=== PATIENT | male | born 1955 | race Caucasian/White ===

== ENCOUNTER 2018-12-21 10:20 | Inpatient (IN) ==
[2018-12-21 11:48] LABS: Basophils # (auto) 0.06 K/uL (0-0.2); Eosinophils # (auto) 0.45 K/uL (0-0.5); Eosinophils % (auto) 7.8 %; Hematocrit (blood only) 38.2 % (42-52); Hemoglobin 12.8 g/dL (14.0-18.0); Immature Granulocytes # (auto) 0.01 K/uL (0.00-0.02); Immature Granulocytes % (auto) 0.2 %; Lymphocytes # (auto) 2.17 K/uL (1.2-3.4); Lymphocytes % (auto) 37.4 %; Mean Corpuscular Hgb Conc 33.5 g/dL (32-36); Mean Platelet Volume 10.2 fL (7.4-10.4); Monocytes # (auto) 0.51 K/uL (0.11-0.59); Monocytes % (auto) 8.8 %; Neutrophils % (auto) 44.8 %; Platelet Count 191 K/uL (130-400); RDW Coefficient of Variation 14.8 % (11.5-14.5); RDW Standard Deviation 46.7 fL (36.4-46.3); Red Blood Count 4.44 M/uL (4.7-6.1)
[2018-12-21 11:59] LABS: Albumin Globulin Ratio 0.7 (0.9-2); Albumin Level 3.6 gm/dl (3.4-5.0); Bilirubin,Total 0.4 mg/dl (0.2-1); Calcium 9.2 mg/dl (8.5-10.1); Creatinine Clr Calc Pharmacy 18.7 ml/min; Est GFR (African American) 13.8; Est GFR (Non-African American) 11.9; Globulin 5.3 gm/dl (2.5-4.0); Potassium 4.3 mmol/L (3.5-5.1); Total Protein 8.9 gm/dl (6.4-8.2)
[2018-12-21] MEDS ORDERED: SODIUM CHLORIDE 0.9% 1000ML 2,000 ML IV ONE (12:19)
[2018-12-21 12:46] LABS: Appearance Urine Clear (Clear); Bilirubin Urine Negative (Negative); Blood Urine Negative (Negative); Color Urine Yellow; Glucose Urine UA Negative (Negative); Ketones Urine Negative (Negative); Leukocyte Esterase Urine Negative (Negative); Nitrite Urine Negative (Negative); Protein Urine Negative (Negative); Specific Gravity Urine 1.014 (1.000-1.030); Urobilinogen Urine Negative (Negative)
--- NOTE | 2018-12-21 13:36 | History & Physical Report ---
Date of Service December 21, 2018 Assessment & Plan (1) ARUN (acute kidney injury): Pt presented with abnormal renal functions from out patient lab on 12/20/18 with Cr: 5 Pt reports some dysuria and urinary frequency. Denies abdominal pain, flank pain, hematuria. Reports vomited once a couple of days ago and reports is eating and drinking. Question if pt taking meds correctly at home as he reports taking a BP med Q6H and no med prescribed as such on his home med list. Today in ER afebrile, BP: 123/54, P: 70, R: 18, 99% on RA. No leukocytosis, BUN: 136, Cr: 4.87, GFR: 11, no significant electrolyte abnormality. Renal US: no hydronephrosis ARUN On CKD III -In ER given 2L NSS -urine osmolality, urine sodium pending -IVF -monitor renal functions -avoid nephrotoxic agents when possible -hold lisinopril, chlorthalidone, lasix -monitor volume status, hx right sided HF with EF: 50% on echo 10/2018 -nephrology consult (2) Dizziness: Reported intermittent vertigo with standing for over one week. Denies head injury. DDX: positional vertigo, orthostatic hypotension -Orthostatics -Meclizine prn -CT head pending -PT eval reyes maneuver (3) Chronic venous stasis: (4) Wound of left leg: (5) Wound of right leg: Recent admission 10/2018 to [facility] for bilateral leg wounds with maggot infestation. Had bedside debridement and legs were dressed with Dakins solution with improvement Reports no increased leg erythema, edema, pain -legs not warm, will monitor and hold on antibiotics at this time -wound consult (6) HTN (hypertension): BP stable -hold lisinopril, lasix, chlorthalidone DVT Prophylaxis -Heparin SQ Full code as per discussion with pt Follows with Dr De Leon for routine care Pt was seen and care coordinated with Dr Luz. See addendum History of Present Illness Chief Complaint: Abnormal labs Primary Care Provider: Polly Phelan MD Pt is 63 y/o M with PMH CKD III, chronic venous stasis presented to ER for abnormal labs with abnormal creatinine. Pt is poor historian. Patient with recent hospitalization at [facility] 11/10/2018-11/16/2018 for maggot infestation of bilateral legs, chronic venous stasis in which he was treated with bedside debridement of legs and Dakins solution. He was also dx with pulmonary edema, dyspnea on exertion, right sided heart failure with EF of 50% on echo, stable angina. Has referral for sleep medicine to r/o sleep apnea as cause of R sided heart failure. He was discharged on chlorthalidone, Lasix, lisinopril, potassium. Was discharged to [facility] 11/16/2018-12/16/2018 Pt states has been having intermittent dizziness with standing described as room spinning with associated nausea and sometimes vomiting. This is been occurring daily since prior to discharge from [facility]. Patient states he did not have any dizziness today. Reports last episode of vomiting was a couple of days ago. Pt reports some tinnitus. Had frontal BROWN yesterday when was doing home PT, no further BROWN's. States having some dysuria and urinary frequency, is unable to tell how long. Reports yesterday had PCP follow up and today was informed had Cr: 5 and was referred to ER. Pt and pt's daughter report the leg redness has been consistent since d/c from [facility] and denies any worsening. Reports chronic tingling sensation to legs, Denies warmth or increased pain or edema to legs. Dressing with petroleum jelly at home. Denies abdominal pain, flank pain or back pain. Denies hematuria. Denies fever/chills, diaphoresis, diarrhea, constipation, syncope, vision changes, neck pain, CP, SOB, orthopnea, palpitations, cough, sore throat, choking, otalgia, rhinorrhea, abdominal pain, extremity weakness. Denies hx kidney stones. Allergies Allergy/AdvReac Type Severity Reaction Status Date / Time No Known Allergies Allergy Verified 12/21/18 12:14 Home Medications Home Medications Medication Instructions Recorded Confirmed Type aspirin 81 mg PO QAM 12/21/18 12/21/18 History chlorthalidone 50 mg PO QAM 12/21/18 12/21/18 History docusate sodium [Colace] 100 mg PO BID 12/21/18 12/21/18 History furosemide [Lasix] 40 mg PO BID 12/21/18 12/21/18 History lisinopril 5 mg PO QAM 12/21/18 12/21/18 History nystatin 1 applic TOPICAL BID PRN 12/21/18 12/21/18 History potassium citrate [Urocit-K 10] 1,080 mg PO QAM 12/21/18 12/21/18 History Past Med/Surg History Medical History HTN (hypertension) (Chronic) CKD (chronic kidney disease), stage III (Chronic) Pulmonary edema (Resolved) Dyspnea on exertion (Chronic) Chronic venous stasis (Chronic) No significant past surgical history Cellulitis (Chronic) Family History Other Family history unknown Social History Feels Safe at Home: Yes Smoking Status: Never smoker Tobacco Type: smokeless tobacco Do You Dip or Chew Tobacco: Yes (1 can per day) Hx Alcohol Use: No Hx Substance Use: No Review of Systems Review of Systems: All systems reviewed & are unremarkable except as noted in HPI & below Physical Exam Physical Exam: General: no acute distress, WDWN Head: normocephalic, atraumatic Eyes: PERRL, conjunctiva non-injected, anicteric ENT: normal inspection external ears, nose, mucous membranes moist Neck: supple, trachea midline Lungs: clear, no respiratory distress, no wheezing/rhonchi/rales CV: RRR, no murmur, no JVD, no pretibial edema Abd: normal BS, soft, non-tender Ext: no cyanosis, bilateral lower legs with erythema with some scabbing, no warmth, ROM intact Neuro: A&O x 3, no focal deficits noted, normal affect Skin: warm, dry, legs as above Results & Data Vital Signs (Past 12 Hours) Vital Signs Temp Pulse Resp BP Pulse Ox 12/21/18 12:10 64 15 100 12/21/18 12:03 59 L 13 114/50 L 99 12/21/18 12:01 60 15 114/50 L 99 12/21/18 12:00 63 17 99 12/21/18 11:50 60 18 99 12/21/18 11:40 60 14 99 12/21/18 11:30 62 16 138/55 L 99 12/21/18 11:28 61 13 98 12/21/18 11:22 60 14 123/54 L 99 12/21/18 10:24 36.4 C L 70 18 100 Laboratory Results Short CBC 12/21/18 Range/Units 11:15 WBC 5.80 (4.8-10.8) K/uL Hgb 12.8 L (14.0-18.0) g/dL Hct 38.2 L (42-52) % Plt Count 191 (130-400) K/uL BMP 12/21/18 11:15 Sodium 139 Potassium 4.3 Chloride 105 Carbon Dioxide 26 BUN 136 H Creatinine 4.87 H* Glucose 96 Calcium 9.2 Liver Function 12/21/18 Range/Units 11:15 Total Bilirubin 0.4 (0.2-1) mg/dl AST 35 (15-37) U/L ALT 32 (12-78) U/L Alkaline Phosphatase 88 (45-117) U/L Albumin 3.6 (3.4-5.0) gm/dl Urine 12/21/18 Range/Units 12:39 Urine Color Yellow Urine Appearance Clear (Clear) Urine pH 7.0 (4.5-7.5) Ur Specific [place] 1.014 (1.000-1.030) Urine Protein Negative (Negative) Urine Glucose (UA) Negative (Negative) Diagnostic Findings Renal US: IMPRESSION: No hydronephrosis. Supervising Physician Co-Signing Physician Notes Patient remains with history of CKD and other problems presents for evaluation and management of abnormal labs. Patient was recently diagnosed to have right- sided heart failure and was started on Lasix, lisinopril, chlorthalidone. Patient complains of intermittent dizziness which he describes as room spinning associated with tinnitus. States having nausea, vomiting and diarrhea 3 days ago which currently resolved. Also complains of dysuria, urinary frequency which he attributes secondary to diuretics. Patient had a routine follow-up with his PCP and was found to have ARUN. Patient has history of chronic venous stasis and had recent debridement of his bilateral lower extremity scabs. Complains of mild pain of the lower extremity chronically.. Also noted to have elevated creatinine 4.87. Renal ultrasound showed no hydronephrosis. We will start him on IV fluids for ARUN. Check urine electrolytes. Hold diuretics, CHI. Nephrology consulted. Avoid nephrotoxic agents as able. Monitor volume status while on IV fluids. CT head currently pending. On exam patient is moderately built nourished, no distress, lungs are clear to auscultation, S1-S2, no murmur, abdomen soft nontender,+ umbilical hernia, grossly normal focal neurological deficits, bilateral lower extremity erythematous (unchanged as per patient/family), +scabs. I personally reviewed the record. Patient is interviewed and examined at bedside. Patient's care is coordinated with Cecily Baker PA-C. Please refer to the documentation above for details of patient's presentation and for discussion of other issues.
--- NOTE | 2018-12-21 13:42 | Ultrasound Report ---
RENAL ULTRASOUND HISTORY: Acute kidney injury. Assess for obstruction. COMPARISON: None. FINDINGS: Right kidney: 9.5 cm. No hydronephrosis. Normal corticomedullary differentiation and cortical thickne ss. Left kidney: 10.0 cm. No hydronephrosis. Normal corticomedullary differentiation and cortical thickne ss. Focal lobularity within the midpole likely represents a dromedary hump. Bladder: Decompressed by a Gonzalez catheter and therefore not visualized. IMPRESSION: No hydronephrosis. Electronically signed by: Ashok Wiley M.D. 12/21/2018 1:41 PM
--- NOTE | 2018-12-21 14:56 | Emergency Department Note ---
Entered by Aimee Meza acting as a scribe for History of Present Illness General Chief complaint: Abnormal Labs/Diagnostic Testing Stated complaint: DR REF. LAB WORK ABNORMAL Source: patient Mode of arrival: ambulatory Limitations: no limitations History of Present Illness Provider complaint: abn lab work Onset (ago): day(s) (yesterday) Location: lower extremity Pain Consistency: + other (episode) Maximum Pain Intensity: 0 Quality: + other (creatinine) Associated symptoms: + other (dizzy, urinary); no chest pain, no nausea/vomiting and no shortness of breath The patient is a 63 year old male who presents to the ER with complaints of abnormal lab results that were obtained yesterday. The patient reports that the blood work was obtained yesterday following discharge from his 30-day stay at [facility] for bilateral lower extremity cellulitis. He reports that he did have an episode of nausea on Monday but denies any other recent episodes. He states that he has been dizzy every day for some time. Per daughter at bedside, the patient is on Lasix but denies any current antibiotic use. He denies any chest pain or shortness of breath but notes he does have urinary symptoms. He reports that he last has a bowel movement yesterday and was baseline. Per [facility] Records, the patient�s baseline creatinine is 1.8 and is currently 5. Home Medications Home Medications Medication Instructions Recorded Confirmed Type aspirin 81 mg PO QAM 12/21/18 12/21/18 History chlorthalidone 50 mg PO QAM 12/21/18 12/21/18 History docusate sodium [Colace] 100 mg PO BID 12/21/18 12/21/18 History furosemide [Lasix] 40 mg PO BID 12/21/18 12/21/18 History lisinopril 5 mg PO QAM 12/21/18 12/21/18 History nystatin 1 applic TOPICAL BID PRN 12/21/18 12/21/18 History potassium citrate [Urocit-K 10] 1,080 mg PO QAM 12/21/18 12/21/18 History Allergies Allergy/AdvReac Type Severity Reaction Status Date / Time No Known Allergies Allergy Verified 12/21/18 12:14 Past Med/Surg History Medical History HTN (hypertension) (Chronic) CKD (chronic kidney disease), stage III (Chronic) Pulmonary edema (Resolved) Dyspnea on exertion (Chronic) Chronic venous stasis (Chronic) No significant past surgical history Cellulitis (Chronic) Family History Other Family history unknown Social History Feels Safe at Home: Yes Smoking Status: Never smoker Tobacco Type: smokeless tobacco Do You Dip or Chew Tobacco: Yes (1 can per day) Hx Alcohol Use: No Hx Substance Use: No Review of Systems See HPI for pertinent positives & negatives. and A total of 10 systems reviewed and were otherwise negative Physical Exam Vital Signs Vital Signs - 24 hr 12/21/18 10:24 12/21/18 11:22 12/21/18 11:28 Temperature 36.4 C L Temperature Source Oral Sepsis Recent Fever Within 48 Hours No Sepsis New/Unexplained Change in Mental Status No Sepsis Action Taken by Nursing No Action Required Pulse Rate 70 60 61 Pulse Rate from SpO2 Sensor 60 61 Respiratory Rate 18 14 13 Blood Pressure 123/54 L Blood Pressure Mean 77 Pulse Oximetry 100 99 98 12/21/18 11:30 12/21/18 11:40 12/21/18 11:50 Temperature Temperature Source Sepsis Recent Fever Within 48 Hours Sepsis New/Unexplained Change in Mental Status Sepsis Action Taken by Nursing Pulse Rate 62 60 60 Pulse Rate from SpO2 Sensor 62 60 59 L Respiratory Rate 16 14 18 Blood Pressure 138/55 L Blood Pressure Mean 82 Pulse Oximetry 99 99 99 12/21/18 12:00 12/21/18 12:01 12/21/18 12:03 Temperature Temperature Source Sepsis Recent Fever Within 48 Hours Sepsis New/Unexplained Change in Mental Status Sepsis Action Taken by Nursing Pulse Rate 63 60 59 L Pulse Rate from SpO2 Sensor 62 61 59 L Respiratory Rate 17 15 13 Blood Pressure 114/50 L 114/50 L Blood Pressure Mean 71 71 Pulse Oximetry 99 99 99 12/21/18 12:10 12/21/18 12:20 12/21/18 12:30 Temperature Temperature Source Sepsis Recent Fever Within 48 Hours Sepsis New/Unexplained Change in Mental Status Sepsis Action Taken by Nursing Pulse Rate 64 67 63 Pulse Rate from SpO2 Sensor 62 68 64 Respiratory Rate 15 18 19 Blood Pressure Blood Pressure Mean Pulse Oximetry 100 99 98 12/21/18 12:31 12/21/18 12:40 12/21/18 12:50 Temperature Temperature Source Sepsis Recent Fever Within 48 Hours Sepsis New/Unexplained Change in Mental Status Sepsis Action Taken by Nursing Pulse Rate 61 62 63 Pulse Rate from SpO2 Sensor 61 62 62 Respiratory Rate 18 15 15 Blood Pressure 130/65 Blood Pressure Mean 86 Pulse Oximetry 100 98 99 12/21/18 13:00 12/21/18 13:10 Temperature Temperature Source Sepsis Recent Fever Within 48 Hours Sepsis New/Unexplained Change in Mental Status Sepsis Action Taken by Nursing Pulse Rate 68 65 Pulse Rate from SpO2 Sensor 69 65 Respiratory Rate 16 14 Blood Pressure 153/95 H Blood Pressure Mean 114 Pulse Oximetry 100 99 GENERAL: Sitting up in bed, disheveled, well nourished, no distress, non-toxic EYE EXAM: normal conjunctiva OROPHARYNX: no exudate, no erythema, lips, buccal mucosa, and tongue normal and mucous membranes are dry NECK: supple, no nuchal rigidity, no adenopathy, non-tender LUNGS: Clear to auscultation. Normal chest wall mechanics HEART: no murmurs, S1 normal and S2 normal ABDOMEN: abdomen soft, non-tender, normo-active bowel sounds, no masses, no rebound or guarding. BACK: Back is symmetrical on inspection and there is no deformity, no midline tenderness, no CVA tenderness. SKIN: no rashes and no bruising UPPER EXTREMITIES: upper extremities are grossly normal. LOWER EXTREMITIES: B/l pitting edema. NEURO EXAM: Normal sensorium, cranial nerves II-XII grossly intact, normal speech, no gross weakness of arms, no gross weakness of legs. Course ED COURSE: Vital signs were reviewed and are within normal limits. The patients medical record was reviewed The above diagnostic studies were performed and reviewed. ED treatments and interventions as stated above. 1104: The patient was evaluated in room C10. A complete history and physical examination was performed. 1212: I reviewed the patient's case with Dr. M[facility] Hospitalist. He will evaluate the patient for further management. 1218: :.I discussed my findings with the patient and he understands and agrees with the treatment plan. Based on the patients age, coexisting illnesses, exam and lab findings the decision to treat as an inpatient was made. The patient remained stable while under my care. The patient will be evaluated for further management. Administered Medications Discontinued Medications Sodium Chloride (Nss 1000ml) 2,000 mls @ 999 mls/hr IV .Q2H1M ONE Stop: 12/21/18 14:19 Last Admin: 12/21/18 12:52 Dose: 999 mls/hr Documented by: [id number] Medical Decision Making Differential Diagnosis Differential Diagnosis includes but is not limited to dehydration, stroke, anemia, hypoglycemia, hyponatremia, hypernatremia, urinary tract infection, pneumonia, bronchitis, sepsis, gastroenteritis, additional abdominal pathology, metabolic abnormalities and infections. Home Medications Current Medication List: was personally reviewed by me Laboratory Data Attestation: I reviewed the patient's lab results. Result diagrams: 12/21/18 11:15 12/21/18 11:15 Lab Results 12/21/18 12/21/18 12/21/18 Range/Units 11:15 11:15 12:39 WBC 5.80 (4.8-10.8) K/uL RBC 4.44 L (4.7-6.1) M/uL Hgb 12.8 L (14.0-18.0) g/dL Hct 38.2 L (42-52) % MCV 86.0 (80-100) fL MCH 28.8 (25-34) pg MCHC 33.5 (32-36) g/dL RDW Std Deviation 46.7 H (36.4-46.3) fL RDW Coeff of Tanja 14.8 H (11.5-14.5) % Plt Count 191 (130-400) K/uL MPV 10.2 (7.4-10.4) fL Immature Gran % (Auto) 0.2 % Neut % (Auto) 44.8 % Lymph % (Auto) 37.4 % [place] % (Auto) 8.8 % Eos % (Auto) 7.8 % Baso % (Auto) 1.0 % Immature Gran # (Auto) 0.01 (0.00-0.02) K/uL Neut # (Auto) 2.60 (1.4-6.5) K/uL Lymph # (Auto) 2.17 (1.2-3.4) K/uL [place] # (Auto) 0.51 (0.11-0.59) K/uL Eos # (Auto) 0.45 (0-0.5) K/uL Baso # (Auto) 0.06 (0-0.2) K/uL Sodium 139 (136-145) mmol/L Potassium 4.3 (3.5-5.1) mmol/L Chloride 105 (98-107) mmol/L Carbon Dioxide 26 (21-32) mmol/L Anion Gap 8.0 (3-11) BUN 136 H (7-18) mg/dl Creatinine 4.87 H* (0.6-1.4) mg/dl Est Cr Clr Drug Dosing 18.7 ml/min Est GFR ( Amer) 13.8 Est GFR (Non-Af Amer) 11.9 BUN/Creatinine Ratio 28.0 H (10-20) Glucose 96 (70-99) mg/dl Calcium 9.2 (8.5-10.1) mg/dl Total Bilirubin 0.4 (0.2-1) mg/dl AST 35 (15-37) U/L ALT 32 (12-78) U/L Alkaline Phosphatase 88 (45-117) U/L Total Protein 8.9 H (6.4-8.2) gm/dl Albumin 3.6 (3.4-5.0) gm/dl Globulin 5.3 H (2.5-4.0) gm/dl Albumin/Globulin Ratio 0.7 L (0.9-2) Lipase 423 H (73-393) U/L Urine Color Yellow Urine Appearance Clear (Clear) Urine pH 7.0 (4.5-7.5) Ur Specific [place] 1.014 (1.000-1.030) Urine Protein Negative (Negative) Urine Glucose (UA) Negative (Negative) Urine Ketones Negative (Negative) Urine Blood Negative (Negative) Urine Nitrite Negative (Negative) Urine Bilirubin Negative (Negative) Urine Urobilinogen Negative (Negative) Ur Leukocyte Esterase Negative (Negative) Blood Pressure Blood Pressure Findings: Elevated blood pressure Blood Pressure Disposition: further management by hospitalist CAROLYN Narrative Patient is a 63-year-old male was referred in by PCP who was admitted and discharged over a month ago from [facility] for bilateral cellulitis. He was in [facility] for a total month and was recently discharged at the beginning of this month. Blood work was obtained and showed a creatinine of 5. CBC shows no significant leukocytosis or anemia. BMP with the elevated creatinine suggesting ARUN. LFTs bilirubin was unremarkable. Lipase is 420. UA was unremarkable. Bladder scan showed greater than 400 and Gonzalez was placed. Patient was given IV fluids and updated bedside. Discussed with the hospitalist patient was minute for ARUN and urinary retention. Impression & Plan ARUN (acute kidney injury), Dizziness Discharge Plan Visit Data Chief Complaint: Abnormal Labs/Diagnostic Testing Stated Complaint: DR REF. LAB WORK ABNORMAL ED Provider: Curt Pinto Discharge Problem: ARUN (acute kidney injury), Dizziness Patient Disposition: Being Evaluated by Hospitalist Discharge Instructions Interventions: ED Discharge Assessment Last Done: 12/21/18 14:39 The scribe's documentation has been prepared under my direction and personally reviewed by me in its entirety. I confirm that the note above accurately refle cts all work, treatment, procedures, and medical decision making performed by me.
[2018-12-21] MEDS ORDERED: MECLIZINE HCL 25 MG TAB PO PRN (15:48)
[2018-12-21] MEDS ORDERED: NYSTATIN POWDER 15GM BTL EXT PRN (15:48)
[2018-12-21] MEDS ORDERED: ACETAMINOPHEN 325 MG TAB PO PRN (15:48)
[2018-12-21] MEDS: SODIUM CHLORIDE 0.9% 1000ML 1,000 ML IV SCH (16:13)
[2018-12-21 17:02] LABS: INR 1.1 (0.9-1.1)
--- NOTE | 2018-12-21 17:34 | CT Scan Report ---
CT head/brain wo con CLINICAL HISTORY: 63 years-old Male presenting with dizziness. TECHNIQUE: Multidetector CT imaging of the head was performed without the use of intravenous contrast . IV contrast: None. One or more dose lowering techniques were used consistent with the principles of ALARA (as low as reasonably achievable), including automatic exposure control, mA or kV adjustment t o individual patient size, and/or use of iterative reconstruction. COMPARISON: None. CT DOSE (mGy.cm): The estimated cumulative dose is 634.44 mGycm. FINDINGS: Ventilating Expert topogram: Unremarkable. Ventricles and sulci normal in size. No hemorrhage. Brain parenchyma normal in appearance with preser destini liang-white differentiation. No acute territorial infarct. No mass effect or midline shift. No ext ra-axial fluid collection. Paranasal sinuses and mastoid air cells clear. Calvarium intact. IMPRESSION: 1. No acute intracranial abnormality. Electronically signed by: Juan Gil M.D. 12/21/2018 5:32 PM
[2018-12-21] MEDS: DOCUSATE SODIUM 100 MG CAP PO SCH (20:01)
[2018-12-21] MEDS: HEPARIN SOD 5,000 UNIT/0.5 ML VIAL SQ SCH (20:01)
[2018-12-22] MEDS: HEPARIN SOD 5,000 UNIT/0.5 ML VIAL SQ SCH ×4 (00:40→23:00)
[2018-12-22] MEDS: SODIUM CHLORIDE 0.9% 1000ML 1,000 ML IV SCH (04:50)
[2018-12-22 07:30] LABS: Hematocrit (blood only) 34.9 % (42-52); Hemoglobin 11.6 g/dL (14.0-18.0); Mean Corpuscular Hgb Conc 33.2 g/dL (32-36); Mean Platelet Volume 9.7 fL (7.4-10.4); Platelet Count 164 K/uL (130-400); RDW Coefficient of Variation 14.9 % (11.5-14.5); RDW Standard Deviation 47.1 fL (36.4-46.3); Red Blood Count 4.06 M/uL (4.7-6.1); White Blood Count 5.01 K/uL (4.8-10.8)
[2018-12-22] MEDS: DOCUSATE SODIUM 100 MG CAP PO SCH ×2 (07:52→20:18)
[2018-12-22 07:55] LABS: BUN Creatinine Ratio 30.2 (10-20); Calcium 9.1 mg/dl (8.5-10.1); Creatinine Clr Calc Pharmacy 23.7 ml/min; Est GFR (African American) 18.3; Est GFR (Non-African American) 15.8; Potassium 4.3 mmol/L (3.5-5.1)
--- NOTE | 2018-12-22 11:23 | Hospitalist Progress Note ---
Date of Service December 22, 2018 Assessment & Plan (1) ARUN (acute kidney injury): Saw PCP the day before the admission for dysuria/urinary frequency and dizziness and had lab done. He was sent to the ER after abnormal lab result with creatinine 5 Possible related to overdiuresis and poor oral intake Renal u/s showed no hydronephrosis received IVF Creatinine improved to 3.8 Nephrology on board Lisinopril, Lasix and chlorthalidone on hold Avoid nephrotoxic agents Continue gentle hydration Will monitor for volume overload Monitor BMP (2) Dizziness: CT head showed no intracranial abnormality On Meclizine PRN PT eval Fall precaution (3) Chronic venous stasis: (4) Wound of left leg: (5) Wound of right leg: [place] [facility] [place] with maggot infestation. Had bedside debridement and legs were dressed with Dakins solution with improvement Wound care on board No signs of infection (Afebrile and no leukocytosis) Will continue to hold on abx (6) HTN (hypertension): BP stable Continue to hold lisinopril, lasix, chlorthalidone DVT Prophylaxis On Heparin SQ CODE STATUS Full code Subjective Pt was seen and examined Lying in bed with no distress Pt said that he feels ok He said that he does not have any dizziness today Currently denies any chest pain, palpitation, dizziness and SOB Physical Exam Physical Exam: General- No acute distress Head- atraumatic Eyes- PERRL, EOMI, ENT- oropharynx clear Neck- supple, no JVD Lungs- clear to auscultation Heart- regular rhythm; no murmur Abdomen- normal bowel sounds, soft, nontender Extremities- no calf tenderness, +bilateral lower extremity erythematous with dry scabs (chronic as per pt) Neuro- alert, oriented x 3; PERRL, EOMI; no facial palsy; no dysarthria Skin- warm & dry Results & Data Vital Signs (Past 12 Hours) Vital Signs Temp Pulse Pulse Resp BP BP Pulse Ox 12/22/18 08:10 59 L 12/22/18 07:23 36.5 C 58 L 18 112/70 98 12/22/18 04:00 36.5 C 58 L 18 122/72 96 12/22/18 00:00 58 L 12/21/18 23:56 60 119/69 06/07/19 23:47 36.8 C 59 L 18 100/48 L 95
[2018-12-23] MEDS: HEPARIN SOD 5,000 UNIT/0.5 ML VIAL SQ SCH ×3 (05:53→21:05)
[2018-12-23] MEDS: DOCUSATE SODIUM 100 MG CAP PO SCH ×2 (07:41→21:05)
[2018-12-23 08:43] LABS: BUN Creatinine Ratio 27.4 (10-20); Calcium 9.7 mg/dl (8.5-10.1); Creatinine Clr Calc Pharmacy 28.1 ml/min; Est GFR (African American) 22.8; Est GFR (Non-African American) 19.7; Potassium 4.5 mmol/L (3.5-5.1)
--- NOTE | 2018-12-23 14:09 | Consultation Report ---
DATE OF CONSULTATION: 12/23/2018 REASON FOR CONSULT: Acute renal failure. HISTORY OF PRESENT ILLNESS: The patient is a 63-year-old male who was sent over to the hospital by his PCP because of abnormal kidney function on outpatient labs, which showed a creatinine of 5. The patient reported he was not feeling well for the preceding few days with poor appetite, intermittent diarrhea, some urinary complaints, but denies having anything way out of ordinary. The patient was recently admitted at [facility] between 11/10/2018 till 11/16/2018 for maggot infestation of bilateral legs, chronic venous stasis. Since admission this time, the patient has received IV fluid and with that renal function, he is improving. Creatinine is now down to 3.22 from 4.87 on admission. He is making increasing amount of urine and his vital signs are stable and he denies having any symptoms at this time. Renal ultrasound has also been done and is normal. As outpatient, he was getting Lasix, chlorthalidone and lisinopril, all of which are on hold. The patient has history of right-sided heart failure with an EF of 50% on his most recent echocardiogram. PAST MEDICAL AND SURGICAL HISTORY: Hypertension; chronic kidney disease stage III, most recently his creatinine was around mid 1s; history of pulmonary edema; right-sided heart failure; chronic venous stasis with chronic skin changes and ulcers; chronic cellulitis. SOCIAL HISTORY: Never smoked. No alcohol, no substance use. REVIEW OF SYSTEMS: As detailed in HPI unless stated otherwise, 12 systems reviewed and negative. HOME MEDICATIONS: Reviewed in detail. Of special interest to Nephrology, he was on chlorthalidone as well as Lasix as well as lisinopril and potassium citrate. PHYSICAL EXAMINATION: GENERAL: Middle-aged white male who appears older than his stated age. He is not in any respiratory distress at this time. He is awake, alert, oriented x3. HEENT: Mucous membranes moist. NECK: Supple. No jugular venous distention. LUNGS: Bilateral clear to auscultation. No respiratory distress. CARDIOVASCULAR: Regular rate and rhythm. No murmur, rubs or gallop. EXTREMITIES: He does not have any edema; however, skin appears with significant chronic skin changes with open ulcers as well as changes of chronic venous stasis. LABORATORY TESTS: Reviewed. At the time of admission, he had a BUN of 136, a creatinine of 4.87 and it is trending down. This morning labs show sodium of 143, BUN 88, creatinine 3.22. Renal ultrasound normal. Urinalysis shows negative for blood, negative for protein and bland urine sediment. Urine osmolarity 502. Urine sodium was 98. ASSESSMENT AND PLAN: A 63-year-old male with history of chronic kidney disease as well as right-sided heart failure on multiple diuretics, admitted with acute renal failure. Acute renal failure: It appears hemodynamic/prerenal. The urine was completely bland with negative blood and negative protein. More importantly, renal function has improved with increasing urine output with the use of IV fluid. I agree with stopping IV fluid at this time as he seems to be fairly stable. Given that he has history of congestive heart failure as well as pulmonary edema, he is at risk of too much fluid. Continue to hold chlorthalidone, Lasix and lisinopril for the time being at least for the next couple of days. No further workup is needed for the etiology of acute renal failure. [facility]
--- NOTE | 2018-12-23 18:39 | Hospitalist Progress Note ---
Date of Service December 23, 2018 Assessment & Plan (1) ARUN (acute kidney injury): Saw PCP the day before the admission for dysuria/urinary frequency and dizziness and had lab done. He was sent to the ER after abnormal lab result with creatinine 5 Possible related to overdiuresis and poor oral intake Renal u/s showed no hydronephrosis received IVF Creatinine improved to 3.2 today Nephrology on board recommended to continue holding Lisinopril, Lasix and chlorthalidone Avoid nephrotoxic agents Continue gentle hydration Continue monitor for volume overload Monitor BMP (2) Dizziness: CT head showed no intracranial abnormality On Meclizine PRN Continue PT/OT Fall precaution (3) Chronic venous stasis: (4) Wound of left leg: (5) Wound of right leg: Recent admission 10/2018 to [facility] [place] for bilateral leg wounds with maggot infestation. Had bedside debridement and legs were dressed with Dakins solution with improvement Wound care on board No signs of infection (Afebrile and no leukocytosis) Will continue to hold on abx (6) HTN (hypertension): BP stable Continue to hold lisinopril, lasix, chlorthalidone DVT Prophylaxis On Heparin SQ CODE STATUS Full code Subjective Pt was seen and examined Lying in bed with no distress Pt said that his strength is getting better He said that he feels much better Denies any chest pain, palpitation, dizziness and SOB Physical Exam Physical Exam: General- No acute distress Head- atraumatic Eyes- PERRL, EOMI, ENT- oropharynx clear Neck- supple, no JVD Lungs- clear to auscultation Heart- regular rhythm; no murmur Abdomen- normal bowel sounds, soft, nontender Extremities- no calf tenderness, +bilateral lower extremity erythematous with dry scabs (chronic as per pt) Neuro- alert, oriented x 3; PERRL, EOMI; no facial palsy; no dysarthria Skin- warm & dry Results & Data Vital Signs (Past 12 Hours) Vital Signs Temp Pulse Pulse Resp BP BP Pulse Ox 12/23/18 16:00 55 L 12/23/18 15:04 36.6 C 55 L 18 146/79 H 97 12/23/18 11:00 36.4 C L 52 L 18 133/77 98 12/23/18 07:30 53 L 12/23/18 07:27 36.6 C 53 L 18 135/76 97
[2018-12-24] MEDS: HEPARIN SOD 5,000 UNIT/0.5 ML VIAL SQ SCH ×3 (06:03→21:17)
[2018-12-24] MEDS: DOCUSATE SODIUM 100 MG CAP PO SCH ×2 (07:41→21:17)
[2018-12-24 08:22] LABS: BUN Creatinine Ratio 24.6 (10-20); Calcium 9.5 mg/dl (8.5-10.1); Creatinine Clr Calc Pharmacy 29.4 ml/min; Est GFR (African American) 24.2; Est GFR (Non-African American) 20.8; Potassium 4.7 mmol/L (3.5-5.1)
--- NOTE | 2018-12-24 08:39 | Nephrology Progress Note ---
Date of Service December 24, 2018 Assessment & Plan (1) ARUN (acute kidney injury): prerenal acute renal failure on CKD 3 w/ baseline creatinine 1.7-2.0. -improvement has slowed somewhat since IVF stopped yesterday; other chemistries acceptable -continue to hold lasix, chlorthalidone, lisinopril -recommend resuming gentle IVF w/ careful monitoring; ivf were stopped d/t pt hx of R HF; he remains on ra however - plan to give 1 L NS (avoid normosol since K already w/ K 4.7) slow rate -daily bmp -strict I/O; bladder scan today pls while awake and call hospitalist if > 200 mL retained urine Present on Admission?: Yes Subjective seen on rounds this am at 0910; denies sob, N; endorses slight dysuria Review of Systems Constitutional: + weakness; no fever Eyes: no worsening vision Cardiovascular: no palpitations and no edema Gastrointestinal: no abdominal pain and no diarrhea/loose stools Physical Exam Constitutional: well developed and well nourished sitting up in chair on RA Eyes: EOM intact bilaterally ? exopthalmos ENMT: Ears: no external ear abnormality Nose: no external nose abnormality Mouth: + dry oral mucous membranes Neck: no nuchal rigidity Respiratory: normal respiratory effort and + tachypneic (slight) Auscultation: lungs clear to auscultation bilaterally and + diminished lung sounds Cardiovascular: Rate/Rhythm: regular rate and regular rhythm Extremities: no edema Gastrointestinal (Abdomen): Inspection/Auscultation: normal bowel sounds Percussion/Palpation: abdomen soft; abdomen nontender Musculoskeletal: Extremities: strength 5/5 throughout valencia, fluent though limited speech Skin: no rashes, warm and dry chronic venous stasis changes distal BLE Neurologic: valencia, fluent speech, no tremor Psychiatric: Orientation: alert, oriented to person and oriented to place Eye Contact: + fair eye contact Affect: + constricted affect Results & Data Vital Signs (Past 12 Hours) Vital Signs Temp Pulse Pulse Resp BP Pulse Ox 12/24/18 08:00 59 L 12/24/18 07:18 36.8 C 67 18 136/81 94 12/24/18 03:06 36.6 C 55 L 18 138/64 97 12/24/18 00:14 36.5 C 60 18 147/74 H 97 12/24/18 00:10 57 L Laboratory Results Abnormal lab results 12/23/18 12/24/18 Range/Units 07:50 07:49 Chloride 113 H 109 H (98-107) mmol/L BUN 88 H 76 H (7-18) mg/dl Creatinine 3.22 H D 3.07 H (0.6-1.4) mg/dl BUN/Creatinine Ratio 27.4 H 24.6 H (10-20)
[2018-12-24] MEDS: AMMONIUM LACTATE 12% LOTION 225 GM BTL EXT SCH ×2 (13:26→21:17)
--- NOTE | 2018-12-24 13:26 | Hospitalist Progress Note ---
Date of Service December 24, 2018 Assessment & Plan (1) ARUN (acute kidney injury): Saw PCP the day before the admission for dysuria/urinary frequency and dizziness and had lab done. He was sent to the ER after abnormal lab result with creatinine 5 Possible related to overdiuresis and poor oral intake Renal u/s showed no hydronephrosis received IVF Creatinine improved to 3.07 today Nephrology on board recommended to continue holding Lisinopril, Lasix and chlorthalidone Will start on gentle hydration as per Nephrology Avoid nephrotoxic agents Continue gentle hydration Continue monitor closely for volume overload Saturated well on RA Monitor BMP (2) Dizziness: CT head showed no intracranial abnormality On Meclizine PRN Continue PT/OT Plan to return home with home health services Fall precaution (3) Chronic venous stasis: (4) Wound of left leg: (5) Wound of right leg: Recent [place] [facility] [place] with maggot infestation. Had bedside debridement and legs were dressed with Dakins solution with improvement Wound care on board Continue daily wound care No signs of infection (Afebrile and no leukocytosis) Will continue to hold on abx (6) HTN (hypertension): BP stable Continue to hold lisinopril, lasix, chlorthalidone DVT Prophylaxis On Heparin SQ CODE STATUS Full code Subjective Pt was seen and examined Sitting in chair with no distress Pt said that he feels Ok he said that his strength is much better now He said that he has been urinated with no problem Denies any chest pain, palpitation, dizziness and SOB Physical Exam Physical Exam: General- No acute distress Head- atraumatic Eyes- PERRL, EOMI, ENT- oropharynx clear Neck- supple, no JVD Lungs- clear to auscultation Heart- regular rhythm; no murmur Abdomen- normal bowel sounds, soft, nontender Extremities- no calf tenderness, +bilateral lower extremity erythematous with dry scabs (chronic as per pt) Neuro- alert, oriented x 3; PERRL, EOMI; no facial palsy; no dysarthria Skin- warm & dry Results & Data Vital Signs (Past 12 Hours) Vital Signs Temp Pulse Pulse Resp BP Pulse Ox 12/24/18 11:09 36.5 C 59 L 18 125/78 98 12/24/18 08:00 59 L 12/24/18 07:18 36.8 C 67 18 136/81 94 12/24/18 03:06 36.6 C 55 L 18 138/64 97
[2018-12-24] MEDS ORDERED: SODIUM CHLORIDE 0.9% 1000ML 1,000 ML IV SCH (13:45)
[2018-12-25] MEDS: HEPARIN SOD 5,000 UNIT/0.5 ML VIAL SQ SCH ×3 (06:37→21:48)
[2018-12-25] MEDS: DOCUSATE SODIUM 100 MG CAP PO SCH (07:54)
[2018-12-25] MEDS: AMMONIUM LACTATE 12% LOTION 225 GM BTL EXT SCH ×2 (07:55→21:48)
[2018-12-25 08:04] LABS: Calcium 9.4 mg/dl (8.5-10.1); Creatinine Clr Calc Pharmacy 30.7 ml/min; Est GFR (African American) 25.3; Est GFR (Non-African American) 21.9; Potassium 4.8 mmol/L (3.5-5.1)
--- NOTE | 2018-12-25 15:00 | Hospitalist Progress Note ---
Date of Service December 25, 2018 Assessment & Plan (1) ARUN (acute kidney injury): Possible secondary to dehydration, poor p.o. intake, patient was also on multiple diuretics at home: Lisinopril Lasix and chlorthalidone All diuretics kept on hold Presented with a creatinine more than 5, baseline creatinine 1.7 Renal u/s showed no hydronephrosis Appreciate input from a nephrology Creatinine continues to improve Patient is continued with IV fluids Avoid nephrotoxic agents Monitor BMP daily (2) Dizziness: Abdomen is has point completely resolved after IV hydration possible secondary dehydration intravascular volume depletion CT head showed no intracranial abnormality On Meclizine PRN Appreciate input from PT OT, stable to return home with home health visiting nurse (3) Chronic venous stasis: (4) Wound of left leg: (5) Wound of right leg: [place] [facility] [place] with maggot infestation. Had bedside debridement and legs were dressed with Dakins solution with improvement Wound care on board Continue daily wound care No signs of infection (Afebrile and no leukocytosis) Patient will return home with home health visiting nurse for ongoing wound care (6) HTN (hypertension): BP stable Avoid all diuretics DVT Prophylaxis On Heparin SQ CODE STATUS Full code Disposition: Possible discharge home in next 1 to 2 days if the function remains stable Subjective Sitting up on chair, denies of any discomfort, no fever or chills Physical Exam Physical Exam: Constitutional well developed and well nourished sitting up in chair on ra Eyes EOM intact bilaterally ENMT Ears: no external ear abnormality Nose: no external nose abnormality Mouth: + dry oral mucous membranes Neck no nuchal rigidity Respiratory normal respiratory effort Auscultation: lungs clear to auscultation bilaterally and + diminished lung sounds Cardiovascular Rate/Rhythm: regular rate and regular rhythm Extremities: no edema Gastrointestinal (Abdomen) Inspection/Auscultation: normal bowel sounds Percussion/Palpation: abdomen soft; abdomen nontender Musculoskeletal Extremities: strength 5/5 throughout Skin no rashes, warm and dry reddish purple legs BL distally; peeling/crusted healing lesions felipe L lateral calf Psychiatric Orientation: alert, oriented to person and oriented to place Eye Contact: + fair eye contact Affect: + constricted affect Results & Data Vital Signs (Past 12 Hours) Vital Signs Temp Pulse Pulse Resp BP BP Pulse Ox 12/25/18 11:14 36.7 C 60 18 163/81 H 99 12/25/18 09:01 50 L 12/25/18 07:10 36.5 C 51 L 18 147/78 H 98 12/25/18 04:55 36.6 C 57 L 18 148/68 H 97
[2018-12-25] MEDS ORDERED: DOCUSATE SODIUM 100 MG CAP PO PRN (17:33)
[2018-12-25] MEDS ORDERED: LACTATED RINGER'S 1,000 ML IV SCH (17:45)
--- NOTE | 2018-12-25 17:59 | Nephrology Progress Note ---
Date of Service December 25, 2018 Assessment & Plan (1) ARUN (acute kidney injury): prerenal acute renal failure on CKD 3 w/ baseline creatinine 1.7-2.0. -improvement has slowed somewhat since IVF stopped yesterday -continue to hold lasix, chlorthalidone, lisinopril -recommend resuming gentle IVF w/ careful monitoring; ivf were stopped d/t pt hx of R HF; he remains on ra however - plan to give 1 L NS (avoid normosol since K already w/ K 4.7) slow rate -daily bmp -strict I/O; bladder scan today pls while awake and call hospitalist if > 200 mL retained urine (2) HTN (hypertension): consistently hypertensive w/ asymptomatic bradycardia on no meds; as OP takes 3 bp meds; will cautiously start amlodipine, felipe since we are giving NS; follow HR (can rarely affect this in susceptible pt) and BLE edema Present on Admission?: Yes Subjective seen on rounds this am 0915; no complaints of sob, N, uncontrolled pain. legs not bothering him he states; denies issues moving bowels or voiding Review of Systems Review of Systems: All systems reviewed & are unremarkable except as noted in HPI & below Physical Exam Constitutional: well developed and well nourished sitting up in chair on ra Eyes: EOM intact bilaterally ENMT: Ears: no external ear abnormality Nose: no external nose abnormality Mouth: + dry oral mucous membranes Neck: no nuchal rigidity Respiratory: normal respiratory effort Auscultation: lungs clear to auscultation bilaterally and + diminished lung sounds Cardiovascular: Rate/Rhythm: regular rate and regular rhythm Extremities: no edema Gastrointestinal (Abdomen): Inspection/Auscultation: normal bowel sounds Percussion/Palpation: abdomen soft; abdomen nontender Musculoskeletal: Extremities: strength 5/5 throughout Skin: no rashes, warm and dry reddish purple legs BL distally; peeling/crusted healing lesions felipe L lateral calf Psychiatric: Orientation: alert, oriented to person and oriented to place Eye Contact: + fair eye contact Affect: + constricted affect Results & Data Vital Signs (Past 12 Hours) Vital Signs Temp Pulse Pulse Resp BP Pulse Ox 12/25/18 15:33 58 L 12/25/18 11:14 36.7 C 60 18 163/81 H 99 12/25/18 09:01 50 L 12/25/18 07:10 36.5 C 51 L 18 147/78 H 98 Laboratory Results Abnormal lab results 12/25/18 Range/Units 07:16 Chloride 111 H (98-107) mmol/L BUN 65 H (7-18) mg/dl Creatinine 2.95 H (0.6-1.4) mg/dl BUN/Creatinine Ratio 22.0 H (10-20)
[2018-12-25] MEDS ORDERED: AMLODIPINE BESYLATE 5 MG TAB PO ONE (18:02)
[2018-12-25] MEDS: SODIUM CHLORIDE 0.9% 1000ML 1,000 ML IV SCH (19:28)
[2018-12-26] MEDS: HEPARIN SOD 5,000 UNIT/0.5 ML VIAL SQ SCH ×3 (06:08→21:19)
[2018-12-26] MEDS: AMMONIUM LACTATE 12% LOTION 225 GM BTL EXT SCH ×2 (07:38→21:19)
[2018-12-26] MEDS: AMLODIPINE BESYLATE 5 MG TAB PO SCH (07:38)
[2018-12-26] MEDS: SODIUM CHLORIDE 0.9% 1000ML 1,000 ML IV SCH (07:52)
[2018-12-26 08:13] LABS: BUN Creatinine Ratio 23.1 (10-20); Calcium 9.5 mg/dl (8.5-10.1); Creatinine Clr Calc Pharmacy 36.5 ml/min; Est GFR (African American) 31.3; Potassium 4.9 mmol/L (3.5-5.1)
--- NOTE | 2018-12-26 09:17 | Nephrology Progress Note ---
Date of Service December 26, 2018 Assessment & Plan (1) ARUN (acute kidney injury): prerenal acute renal failure on CKD 3 w/ baseline creatinine 1.7-2.0. improving today to 2.5 creatinine w/ further gentle fluid resuscitation w/ 1L NS -continue to hold lasix, chlorthalidone, lisinopril -recommend resuming gentle IVF w/ careful monitoring; ivf were stopped d/t pt hx of R HF; he remains on ra however - change NS to LR and again give 1L only -daily bmp felipe w/ K on high end of normal -strict I/O; bladder scan today pls while awake and call hospitalist if > 200 mL retained urine -he will need OP f/u in CKD clinic in [place] (2) HTN (hypertension): consistently hypertensive w/ asymptomatic bradycardia on no meds; as OP takes 3 bp meds; will cautiously start amlodipine, felipe since we are giving IV fluid; follow HR (can rarely affect this in susceptible pt) and BLE edema -defer to hospitalist for consideration of warranted of bradycardia > will add tsh if not already done Subjective ambulatory w/o asst; did have some neuropathic pain on legs he states w/ initiating urinary stream last evening; denies current voiding concerns/issues; denies leg pain or edema. no sob. asking more about renal function today and goals of care Review of Systems Review of Systems: All systems reviewed & are unremarkable except as noted in HPI & below Gastrointestinal: no bloating, no nausea and no change in bowel habits Integumentary: feels legs are improving slowly Physical Exam Constitutional: well developed and well nourished on RA up in chair ambulatory w/o asst Eyes: EOM intact bilaterally ?proptosis mild ENMT: Ears: no external ear abnormality Nose: no external nose abnormality Mouth: + dry oral mucous membranes Neck: no nuchal rigidity Respiratory: normal respiratory effort Auscultation: lungs clear to auscultation bilaterally and + diminished lung sounds Cardiovascular: Rate/Rhythm: regular rate and regular rhythm Extremities: no edema Gastrointestinal (Abdomen): Inspection/Auscultation: normal bowel sounds Percussion/Palpation: abdomen soft; abdomen nontender Musculoskeletal: Extremities: strength 5/5 throughout Skin: no rashes, warm and dry chronic venous stasis changes/redness in legs; also crusty carr plaques felipe LLE laterally Neurologic: valencia, fluent speech, amb w/o asst Psychiatric: Orientation: alert, oriented to person and oriented to place Eye Contact: + fair eye contact Affect: + constricted affect Results & Data Vital Signs (Past 12 Hours) Vital Signs Temp Pulse Pulse Resp BP Pulse Ox 12/26/18 08:00 53 L 12/26/18 07:12 36.5 C 57 L 18 145/81 H 98 12/26/18 03:52 36.4 C L 66 18 145/73 H 96 12/26/18 02:00 63 Laboratory Results Abnormal lab results 12/26/18 Range/Units 07:13 Chloride 111 H (98-107) mmol/L BUN 57 H (7-18) mg/dl Creatinine 2.48 H D (0.6-1.4) mg/dl BUN/Creatinine Ratio 23.1 H (10-20)
[2018-12-26] MEDS ORDERED: LACTATED RINGER'S 1,000 ML IV SCH (10:45)
--- NOTE | 2018-12-26 17:41 | Hospitalist Progress Note ---
Date of Service December 26, 2018 Assessment & Plan (1) ARUN (acute kidney injury): Acute renal failure: Possible ATN in a.m. baseline CKD stage III, Creatinine baseline 1.7-2 Possible secondary to dehydration, poor p.o. intake, patient was also on multiple diuretics at home: Lisinopril Lasix and chlorthalidone All diuretics kept on hold Presented with a creatinine more than 5, baseline creatinine 1.7 Renal u/s showed no hydronephrosis Appreciate input from a nephrology Creatinine continues to improve 2.4 today Patient is continued with IV fluids Avoid nephrotoxic agents Repeat basic metabolic panel in a.m. Plan to discharge home if kidney function continues to improve Will need outpatient follow-up with nephrology, and periodic blood work to assess kidney function (2) Dizziness: Resolved, denies of any dizzy spell or lightheadedness possible secondary dehydration intravascular volume depletion Patient's symptoms completely resolved after IV hydration CT head showed no intracranial abnormality All diuretics discontinued (3) Chronic venous stasis: (4) Wound of left leg: (5) Wound of right leg: [place] [facility] [place] with maggot infestation. Had bedside debridement and legs were dressed with Dakins solution with improvement Wound care on board Continue daily wound care No signs of infection (Afebrile and no leukocytosis) Patient will return home with home health visiting nurse for ongoing wound care (6) HTN (hypertension): BP stable Avoid all diuretics Added low-dose Norvasc DVT Prophylaxis On Heparin SQ CODE STATUS Full code Disposition: Possible discharge home tomorrow if renal function remains stable Subjective Sitting up on chair, denies of any discomfort, no fever or chills Physical Exam Constitutional: well developed and well nourished Eyes: EOM intact bilaterally ENMT: Ears: no external ear abnormality Nose: no external nose abnormality Mouth: + dry oral mucous membranes Neck: no nuchal rigidity Respiratory: normal respiratory effort Auscultation: lungs clear to auscultation bilaterally and + diminished lung sounds Cardiovascular: Rate/Rhythm: regular rate and regular rhythm Extremities: no edema Gastrointestinal (Abdomen): Inspection/Auscultation: normal bowel sounds Percussion/Palpation: abdomen soft; abdomen nontender Musculoskeletal: Extremities: extremities normal to inspection (Diffuse plaque type skin lesion in bilateral lower extremity extending to dorsal foot, chronic venous stasis skin change,) Psychiatric: Orientation: alert, oriented to person and oriented to place Results & Data Vital Signs (Past 12 Hours) Vital Signs Temp Pulse Pulse Resp BP Pulse Ox 12/26/18 15:35 36.6 C 66 18 128/61 99 12/26/18 11:15 36.6 C 62 18 148/79 H 97 12/26/18 08:00 53 L 12/26/18 07:12 36.5 C 57 L 18 145/81 H 98
[2018-12-27] MEDS: HEPARIN SOD 5,000 UNIT/0.5 ML VIAL SQ SCH ×2 (06:05→13:09)
[2018-12-27 07:05] LABS: BUN Creatinine Ratio 22.4 (10-20); Calcium 9.8 mg/dl (8.5-10.1); Creatinine Clr Calc Pharmacy 38.9 ml/min; Est GFR (African American) 33.5; Est GFR (Non-African American) 28.9
[2018-12-27] MEDS: AMMONIUM LACTATE 12% LOTION 225 GM BTL EXT SCH (07:36)
[2018-12-27] MEDS: AMLODIPINE BESYLATE 5 MG TAB PO SCH (07:36)
--- NOTE | 2018-12-27 08:04 | Nephrology Progress Note ---
Date of Service December 27, 2018 Assessment & Plan (1) ARUN (acute kidney injury): prerenal acute renal failure on CKD 3 w/ baseline creatinine 1.7-2.0. improving today to 2.3 creatinine w/ further gentle fluid resuscitation w/ 1L LR -continue to hold lasix, chlorthalidone, lisinopril -recommend resuming gentle IVF w/ careful monitoring; ivf were stopped d/t pt hx of R HF; he remains on ra however - would cont LR and again give 1L only -daily bmp felipe w/ K on high end of normal -strict I/O; bladder scan today pls while awake and call hospitalist if > 200 mL retained urine D/C recommendations -he will need OP f/u in CKD clinic in [place] or [facility] w/ any provider in 4-6 wks -recommend weekly bmp until then -continue to hold chlorthalidone, lasix, lisinopril -continue amlodipien at d/c current dose -consumer credit counselor pt against nsaids at d/c -recommend advising pcp as OP to monitor for bradycardia which may need work up potentially if recurrent/persistent/ unexplained Will sign off; pls call if ? (2) HTN (hypertension): consistently hypertensive w/ asymptomatic bradycardia on no meds until today when he has improved bp and bradycardia both; tsh is wnl; as OP takes 3 bp meds, all held; will cautiously start amlodipine; follow HR (can rarely affect this in susceptible pt who already has conduction dz, no evidence directly of this for him) and BLE edema Subjective no dizziness; does tire out walking halls; ate full breakfast; no sob, no N; no edema no concerns for voiding or leg wounds Review of Systems Review of Systems: All systems reviewed & are unremarkable except as noted in HPI & below Physical Exam Constitutional: well developed and well nourished sitting on side of bed on ra Eyes: EOM intact bilaterally ENMT: Ears: no external ear abnormality Nose: no external nose abnormality Mouth: + dry oral mucous membranes Neck: no nuchal rigidity Respiratory: normal respiratory effort Auscultation: lungs clear to auscultation bilaterally and + diminished lung sounds Cardiovascular: Rate/Rhythm: regular rate and regular rhythm Extremities: + edema (trace BLE edema unchanged from yesterday) Gastrointestinal (Abdomen): Inspection/Auscultation: normal bowel sounds Percussion/Palpation: abdomen soft; abdomen nontender Musculoskeletal: Extremities: strength 5/5 throughout Skin: no rashes, warm and dry crusted skin wounds BLE w/o drainage Psychiatric: Orientation: alert, oriented to person and oriented to place Eye Contact: + fair eye contact Affect: + constricted affect Results & Data Vital Signs (Past 12 Hours) Vital Signs Temp Pulse Pulse Resp BP Pulse Ox 12/27/18 07:53 71 12/27/18 07:10 36.4 C L 76 16 144/82 H 100 12/27/18 03:00 36.4 C L 57 L 20 145/76 H 98 12/27/18 00:38 58 L 12/26/18 23:08 36.5 C 63 18 139/77 98 12/26/18 20:11 36.8 C 60 18 158/68 H 100 Laboratory Results Abnormal lab results 12/26/18 12/27/18 Range/Units 07:13 06:10 Chloride 111 H 109 H (98-107) mmol/L BUN 57 H 52 H (7-18) mg/dl Creatinine 2.48 H D 2.34 H (0.6-1.4) mg/dl BUN/Creatinine Ratio 23.1 H 22.4 H (10-20)
--- NOTE | 2018-12-27 19:12 | Hospitalist Progress Note ---
Date of Service December 26, 2018 Assessment & Plan (1) ARUN (acute kidney injury): Acute renal failure: Possible ATN in a.m. baseline CKD stage III, Creatinine baseline 1.7-2 Possible secondary to dehydration, poor p.o. intake, patient was also on multiple diuretics at home: Lisinopril Lasix and chlorthalidone All diuretics kept on hold Presented with a creatinine more than 5, baseline creatinine 1.7 Renal u/s showed no hydronephrosis Appreciate input from a nephrology Creatinine continues to improve 2.4 today Patient is continued with IV fluids Avoid nephrotoxic agents Repeat basic metabolic panel in a.m. Plan to discharge home if kidney function continues to improve Will need outpatient follow-up with nephrology, and periodic blood work to assess kidney function (2) Dizziness: Resolved, denies of any dizzy spell or lightheadedness possible secondary dehydration intravascular volume depletion Patient's symptoms completely resolved after IV hydration CT head showed no intracranial abnormality All diuretics discontinued (3) Chronic venous stasis: (4) Wound of left leg: (5) Wound of right leg: Recent admission 10/2018 to [facility] for bilateral leg wounds with maggot infestation. Had bedside debridement and legs were dressed with Dakins solution with improvement Wound care on board Continue daily wound care No signs of infection (Afebrile and no leukocytosis) Patient will return home with home health visiting nurse for ongoing wound care (6) HTN (hypertension): BP stable Avoid all diuretics Added low-dose Norvasc DVT Prophylaxis On Heparin SQ CODE STATUS Full code Disposition: Possible discharge home tomorrow if renal function remains stable Subjective Offers no complaints, no fever or chills, has been out of bed, Physical Exam Constitutional: well developed and well nourished Eyes: EOM intact bilaterally ENMT: Ears: no external ear abnormality Nose: no external nose abnormality Mouth: + dry oral mucous membranes Neck: no nuchal rigidity Respiratory: normal respiratory effort Auscultation: lungs clear to auscultation bilaterally and + diminished lung sounds Cardiovascular: Rate/Rhythm: regular rate and regular rhythm Extremities: no edema Gastrointestinal (Abdomen): Inspection/Auscultation: normal bowel sounds Pe rcussion/Palpation: abdomen soft; abdomen nontender Musculoskeletal: Extremities: extremities normal to inspection (Diffuse plaque type skin lesion in bilateral lower extremity extending to dorsal foot, chronic venous stasis skin change,) Psychiatric: Orientation: alert, oriented to person and oriented to place Results & Data Vital Signs (Past 12 Hours) Vital Signs Temp Pulse Pulse Resp BP Pulse Ox 12/26/18 15:35 36.6 C 66 18 128/61 99 12/26/18 11:15 36.6 C 62 18 148/79 H 97 12/26/18 08:00 53 L 12/26/18 07:12 36.5 C 57 L 18 145/81 H 98
--- NOTE | 2018-12-27 19:14 | Discharge Summary ---
Date of Service December 27, 2018 Admission HPI Per Admitting Provider Pt is 63 y/o M with PMH CKD III, chronic venous stasis presented to ER for abnormal labs with abnormal creatinine. Pt is poor historian. Patient with recent hospitalization at [facility] 11/10/2018-11/16/2018 for maggot infestation of bilateral legs, chronic venous stasis in which he was treated with bedside debridement of legs and Dakins solution. He was also dx with pulmonary edema, dyspnea on exertion, right sided heart failure with EF of 50% on echo, stable angina. Has referral for sleep medicine to r/o sleep apnea as cause of R sided heart failure. He was discharged on chlorthalidone, Lasix, lisinopril, potassium. Was discharged to [facility] 11/16/2018-12/16/2018 Pt states has been having intermittent dizziness with standing described as room spinning with associated nausea and sometimes vomiting. This is been occurring daily since prior to discharge from [facility]. Patient states he did not have any dizziness today. Reports last episode of vomiting was a couple of days ago. Pt reports some tinnitus. Had frontal BROWN yesterday when was doing home PT, no further BROWN's. States having some dysuria and urinary frequency, is unable to tell how long. Reports yesterday had PCP follow up and today was informed had Cr: 5 and was referred to ER. Pt and pt's daughter report the leg redness has been consistent since d/c from [facility] and denies any worsening. Reports chronic tingling sensation to legs, Denies warmth or increased pain or edema to legs. Dressing with petroleum jelly at home. Denies abdominal pain, flank pain or back pain. Denies hematuria. Denies fever/chills, diaphoresis, diarrhea, constipation, syncope, vision changes, neck pain, CP, SOB, orthopnea, palpitations, cough, sore throat, choking, otalgia, rhinorrhea, abdominal pain, extremity weakness. Denies hx kidney stones. Principal Diagnosis Acute renal failure Discharge Data Allergies Allergy/AdvReac Type Severity Reaction Status Date / Time No Known Allergies Allergy Verified 12/21/18 12:14 Consultations 12/21/18 12:15 ED Decision to Admit Stat 12/21/18 15:48 Consult Case Management - Discharge Planning Routine Consult Nephrology Routine Ordered Studies 12/21/18 12:50 US renal/blad retro comp Stat 12/21/18 15:14 CT head/brain wo con Urgent Hospital Course (1) ARUN (acute kidney injury): Acute renal failure: Possible ATN in a.m. baseline CKD stage III, Creatinine baseline 1.7-2 Possible secondary to dehydration, poor p.o. intake, patient was also on multiple diuretics at home: Lisinopril Lasix and chlorthalidone All diuretics kept on hold Presented with a creatinine more than 5, baseline creatinine 1.7 Renal u/s showed no hydronephrosis Appreciate input from a nephrology Creatinine continues to improve 2.4 -2.2 Should input from nephrology, patient stable to be discharged home Asked to avoid NSAIDs Diuretics: Lasix chlorthalidone, lisinopril discontinued Repeat BMP in a week Outpatient follow-up with nephrology scheduled in 4 to 6 weeks (2) Dizziness: Resolved, denies of any dizzy spell or lightheadedness possible secondary dehydration intravascular volume depletion Was on multiple diuretics: Lasix chlorthalidone lisinopril Has been discontinued Patient's symptoms completely resolved after IV hydration CT head showed no intracranial abnormality (3) Chronic venous stasis: (4) Wound of left leg: (5) Wound of right leg: Recent admission 10/2018 to [facility] for bilateral leg wounds with maggot infestation. Had bedside debridement and legs were dressed with Dakins solution with improvement Wound care on board Continue daily wound care No signs of infection (Afebrile and no leukocytosis) Patient will return home with home health visiting nurse for ongoing wound care (6) HTN (hypertension): BP stable Avoid all diuretics Added low-dose Norvasc DVT Prophylaxis On Heparin SQ CODE STATUS Full code Disposition: Stable to be discharged home today Total Time Total Time Spent Total Time Spent (In Minutes): Approximately 45 minutes Total Time Includes: Examination of the Patient, Discharge Planning, Medication Reconciliation and Communication With Other Providers Discharge Plan Discharge Items Patient Disposition: Home - Home Health Services Reason For Visit: ARUN Discharge Diagnosis: Acute renal failure/chronic lower extremity wound/venous stasis skin change Discharge Goals: Decrease discomfort, Diagnostic testing and Therapeutic intervention Activity: Resume your previous activity Non-emergency contact: Primary Care Provider Call non-emergency contact if: you have any medication questions Follow-up/Referrals: Anuel Olivier MD [Physician] - 02/08/19 10:40 am Polly Torres MD [Primary Care Provider] - 01/01/19 11:00 am Diet: Heart Healthy Other Ambulatory Orders: Basic Metabolic Panel (Routine) Timeframe: 1 Week Location: Determined by Patient Ordered By: Tiffanie Mckeon [facility]ly [facility] Provider Instructions: Hospital follow-up with Dr. Davy Phelan on 01/01/2019 at 11 AM EKG on hospital follow-up : Baseline asymptomatic bradycardia Internal [facility] Nephrology follow-up: With Dr. Anuel Olivier MD on 02/08/2019 at 10:40 AM Nephrology, [facility] FOLLOW UP WITH WOUND CLINIC OFFICE WILL CALL WITH APPOINTMENT Do not take Motrin, Aleve, ibuprofen, naproxen-avoid NSAIDs/[id number] pain medication will cause worsening of your kidney function Repeat blood work basic metabolic panel in 1 week New medication: Amlodipine/Norvasc 5 m tablet by mouth daily-for blood pressure control Discontinued medications:/Do not take These meds Chlorthalidone 50 mg by mouth daily Lasix 40 mg by mouth twice daily Lisinopril 5 mg by mouth daily Potassium tablet daily Prescriptions: New amlodipine [Norvasc] 5 mg Tablet 5 mg PO QAM 30 Days Qty: 30 RF: 3 Continued aspirin 81 mg tablet,delayed release (DR/EC) 81 mg PO QAM RF: 0 docusate sodium [Colace] 100 mg Capsule 100 mg PO BID RF: 0 nystatin 100,000 unit/gram Powder 1 applic TOPICAL BID PRN (Reason: Rash) RF: 0 Discontinued furosemide [Lasix] 40 mg Tablet 40 mg PO BID RF: 0 chlorthalidone 25 mg Tablet 50 mg PO QAM RF: 0 potassium citrate [Urocit-K 10] 10 mEq (1,080 mg) Tablet Extended Release 1,080 mg PO QAM RF: 0 lisinopril 5 mg Tablet 5 mg PO QAM RF: 0 Stand-Alone Forms: [facility] Discharge Orders: Discharge Order (Routine); Ordered 12/27/18 Ordered By: Tiffanie Mckeon Admission Data Admit Date/Time: 12/21/18 13:21 Attending Provider: Tiffanie Mckeon Admit Provider: Vaibhav Luz Primary Care Provider: Polly Torres Other Providers: Vaibhav Luz ; Reba Tomlinson ; Stacy Harris Service: Telemetry Medical Other Interventions: Discharge Summary Assessment (RN) Last Done: 12/27/18 13:07 DC Date/Time DO NOT enter until pt leaves facility: 12/27/18 14:20
== END 2018-12-27 14:20 | disposition home health service (06) | DRG 640 ==
LOC: ED 10:20 → SUATTDRO 13:21 → 2W 13:21